=== PATIENT | male | born 2005 | race Caucasian/White ===

== ENCOUNTER 2024-11-15 20:30 | Emergency (ER) | payer OTHER ==
[~2024-11-15] VITALS: Ht 182.8 cm; Wt 136.1 kg
[2024-11-15 22:00] LABS: BASO % 0.5 % (0.0-1.0); EOS # 0.3 10*3/uL (0.0-0.4); EOS % 3.3 % (1.0-4.0); HEMATOCRIT 46.1 % (42.0-52.0); MEAN CELL VOLUME 85.7 fl (80.0-94.0); MEAN CORPUSCULAR HGB 29.2 pg (27.0-31.0); MEAN CORPUSCULAR HGB CONC 34.1 g/dl (33.0-37.0); MEAN PLATELET VOLUME 9.5 fl (9.6-12.3); MONO % 13.1 % (3.0-9.0); NEUT % 62.4 % (47.0-73.0); PLATELET COUNT AUTOMATED 251 10*3/uL (130-400); RED BLOOD COUNT 5.38 10*6/uL (4.50-5.90); RED CELL DISTRI WIDTH 12.3 % (0-14.5)
[2024-11-15 22:26] LABS: ALKALINE PHOSPHATASE 90 U/L (46-116); BUN 15 mg/dl (9-23); CHLORIDE 106 mmol/L (98-107); POTASSIUM 4.1 mmol/L (3.4-5.1); SGPT/ALT 36 U/L (5-49)
== END 2024-11-16 03:18 | disposition left against medical advice (07) ==
LOC: ED 20:30
PROVIDERS: Emergency Medicine
DX: R07.89 Other chest pain (principal); R20.2 Paresthesia of skin; Z53.29 Procedure and treatment not carried out because of patient's decision for other reasons